=== PATIENT | male | born 1950 | race Caucasian/White ===

== ENCOUNTER → 2019-01-30 | Day surgery (SDC) | payer MEDICARE, OTHER ==
[~2019-01-30] MED LIST: ACETAMINOPHEN 325 MG TAB PO; FENTAnyl 50 MCG/ML VIAL; HEPARIN 1000 UNITS/ML 10 ML INJ; HYDROCODONE/APAP (5/325) TAB PO; IODIXANOL LOCM 100 ML BTL; LABETALOL HCL 20MG INJ IV; LIDOCAINE 1% (MDV) 20 ML INJ; LORAZEPAM 2 MG INJ; MIDAZOLAM 1 MG/ML 2 ML INJ; NACL 0.9% 3 ML SYG IV; NITROGLYCERIN (IC) 100 MCG/ML INJ; NITROGLYCERIN (SL) 0.4 MG TAB SL; ONDANSETRON 4 MG INJ IV; SOD CHLORIDE 0.45% 1,000 ML IV; VERAPAMIL 5 MG INJ; morphine 2 MG INJ IV
[2019-01-30 17:22] LABS: ADD MAN DIFF? NO
[2019-01-30 17:24] LABS: WHITE BLOOD COUNT 10.2 10^3/ul (4.8-10.8)
[2019-01-30 17:24] LABS: BASOPHILS % 0.4 % (0.0-2.0); EOSINOPHILS # 0.1 10^3/ul (0.0-0.5); EOSINOPHILS % 0.7 % (0.0-7.0); HEMATOCRIT 46.8 % (42.0-52.0); HEMOGLOBIN 15.6 g/dl (14.0-18.0); LYMPHOCYTES # 3.2 10^3/ul (0.8-2.9); LYMPHOCYTES % 31.9 % (15.0-51.0); MEAN CORPUSCULAR HEMOGLOBIN 30.2 pg (29.0-33.0); MEAN CORPUSCULAR HGB CONC 33.3 g/dl (32.0-37.0); MEAN CORPUSCULAR VOLUME 90.5 fl (82.0-101.0); MEAN PLATELET VOLUME 9.4 fl (7.4-10.4); MONOCYTE # 0.6 10^3/ul (0.3-0.9); MONOCYTES % 5.5 % (0.0-11.0); NEUTROPHIL # 6.2 10^3/ul (1.6-7.5); NEUTROPHILS % 61.2 % (39.0-77.0); PLATELET COUNT 214 10^3/UL (140-415); RED BLOOD COUNT 5.17 10^6/ul (4.70-6.10)
[2019-01-30 17:43] LABS: INR 0.92; PROTIME 12.5 Sec (11.9-14.9)
[2019-01-30 17:44] LABS: PARTIAL THROMBOPLASTIN TIME 26.8 Sec (23.0-35.0)
[2019-01-30 17:45] LABS: ALANINE AMINOTRANSFERASE 32 IU/L (13-69); ALBUMIN 4.3 g/dl (3.3-4.9); ALKALINE PHOSPHATASE 84 IU/L (42-121); ANION GAP 8 (5-13); ASPARTATE AMINO TRANSFERASE 25 IU/L (15-46); BLOOD UREA NITROGEN 14 mg/dl (7-20); CALCIUM 9.1 mg/dl (8.4-10.2); CARBON DIOXIDE 26 mmol/L (21-31); CHLORIDE 108 mmol/L (97-110); CREATININE 0.81 mg/dl (0.61-1.24); Estimated GFR > 60 mL/min (>60); GLUCOSE 102 mg/dl (70-220); LIPASE 66 U/L (23-300); POTASSIUM 4.1 mmol/L (3.5-5.1); SODIUM 142 mmol/L (135-144); TOTAL PROTEIN 7.6 g/dl (6.1-8.1)
[2019-01-30] MEDS: SOD CHLORIDE 0.9% 1,000 ML IV (17:45)
[2019-01-30 18:00] LABS: TROPONIN-I 0.144 ng/ml (0.000-0.120)
[2019-01-30] MEDS: ENOXAPARIN 80 MG/0.8 ML SYG SC (20:23)
[2019-01-30] MEDS: ATORVASTATIN 80 MG TAB PO (20:26)
[2019-01-30] MEDS: LORAZEPAM 2 MG INJ IV (20:27)
[2019-01-30] MEDS: METOPROLOL (XL) 25 MG TAB PO (20:27)
== END | disposition home or self-care (01) ==
LOC: E/R 16:21 → CCL 20:13
DX: I25.10 Atherosclerotic heart disease of native coronary artery without angina pectoris (principal)
CPT/HCPCS: 36415; 71045; 80053; 83690; 84484; 85025; 85610; 85730; 93005; 93458; 99285-25